=== PATIENT | female | born 1950 | race Caucasian/White ===

== ENCOUNTER 2018-11-11 11:58 | Emergency (ER) | payer OTHER, MEDICARE ==
[~2018-11-11] VITALS: Ht 177.8 cm; Wt 136.1 kg
== END 2018-11-11 13:46 | disposition home or self-care (01) ==
LOC: ER 11:58
DX: M79.662 Pain in left lower leg (principal); W19.XXXA Unspecified fall, initial encounter
CPT/HCPCS: 99283

== ENCOUNTER 2025-04-20 14:20 | Inpatient (IN) | payer OTHER ==
[~2025-04-20] VITALS: Ht 175.3 cm; Wt 142.3 kg
[2025-04-20 15:30] LABS: BASOPHILS ABSOLUTE AUTO 0.04 K/mm3 (0.00-0.23); BASOPHILS PERCENT AUTO 1 % (0-2); EOSINOPHILS ABSOLUTE AUTO 0.17 K/mm3 (0.00-0.68); EOSINOPHILS PERCENT AUTO 2 % (0-6); Hematocrit 37.2 % (33.0-51.0); Hemoglobin 12.1 g/dL (11.5-16.0); IMMATURE GRAN ABSOLUTE AUTO 0.05 K/mm3 (0.00-0.10); IMMATURE GRAN PERCENT AUTO 1 % (0-1); LYMPHOCYTES ABSOLUTE AUTO 1.21 K/mm3 (0.84-5.20); LYMPHOCYTES PERCENT AUTO 16 % (21-46); MONOCYTES ABSOLUTE AUTO 0.75 K/mm3 (0.16-1.47); MONOCYTES PERCENT AUTO 10 % (4-13); Mean Corpuscular HGB Conc 32.5 g/dL (31.5-36.5); Mean Corpuscular Volume 90 fL (80-100); NEUTROPHILS ABSOLUTE AUTO 5.60 K/mm3 (1.96-9.15); NEUTROPHILS PERCENT AUTO 72 % (41-73); NRBC ABSOLUTE 0.00 K/mm3 (0.00-0.02); NRBC Auto 0.0 /100 WBC (0.0-0.2); Platelet Count 204 K/mm3 (150-400); RDW Coefficient Variation 14.4 % (11.7-14.2); RDW Standard Deviation 47.7 fL (35.1-46.3)
[2025-04-20 16:19] LABS: Alanine Aminotransfer (ALT/SGP 37.0 U/L (12-78); Albumin, Blood 2.6 g/dL (3.4-5.0); Albumin/Globulin Ratio 0.7 (0.8-1.8); Anion Gap 7.0 mmol/L (3-11); Aspartate Aminotrans (AST/SGOT 30.0 U/L (12-37); Bilirubin, Total 0.5 mg/dL (0.1-1.0); Blood Urea Nitrogen 20.0 mg/dL (8-24); CO2, Blood 28.0 mmol/L (21-32); Calcium, Blood 8.3 mg/dL (8.5-10.1); Chloride, Blood 106.0 mmol/L (98-108); Creatinine, Blood 0.61 mg/dL (0.40-1.00); Globulin, Blood 3.9 g/dL (2.2-4.0); Glucose, Blood 104.0 mg/dL (70-99); Potassium, Blood 3.6 mmol/L (3.5-5.5); Sodium, Blood 137.0 mmol/L (136-145); Total Protein, Blood 6.5 g/dL (6.4-8.2)
[2025-04-20] MEDS ORDERED: Ondansetron HCl 2 MG / ML 2ML Vial IV PRN (19:55)
[2025-04-20] MEDS ORDERED: Piperacillin/Tazobactam Sod 3.375 GM in NS 100 ML IV ONE (20:55)
[2025-04-20] MEDS ORDERED: Ketorolac Tromethamine 15mg Vial IV PRN (20:55)
[2025-04-20] MEDS ORDERED: Lactobacil 2-S.Thermo-Bifido 1 1 Cap PO SCH (21:00)
[2025-04-20 22:03] VITALS: BP 192/100
[2025-04-20 22:11] LABS: Thyroid Stimulating Hormone 3.24 uIU/mL (0.360-4.800)
--- NOTE | 2025-04-21 00:43 | NUR ---
ADMIT NOTE FOR 04/20/252149 REPORT WAS RECEIVED FROM THE ER AND PT WAS BROUGHT DOWN ON THE GURNEY AND SHE AMBULATED TO THE BED. SHE WAS ORIENTED TO ROOM AND STAFF. ALERT ORIENTED X 4 ABLE TO VERBALIZE NEEDS ABLE TO GET UP AD JED AND AMBULATE TO THE BATHROOM. SHES HERE FOR CELLULITIS TO HER RLE THAT IS SCABBED RED AND SWOLLEN WITH WEEPING DRAINAGE. C/O PAIN TO AREA WAS MEDICATED WITH TORADOL IN THE ER BEFORE ADMIT. HER BP WAS ELEVATED ON ADMIT AT 192/100. I RETOOK IT AGAIN AT 0000 AND IT WAS 164/83. SHE HAS A CONSULT ORDERED WITH SURGEON. SHES RESTING IN BED AT THIS TIME
[2025-04-21 00:45] VITALS: BP 164/83
[2025-04-21] MEDS ORDERED: NS 250 ML IV PRN (02:10)
[2025-04-21] MEDS ORDERED: Piperacillin/Tazobactam Sod 3.375 GM in NS 100 ML IV SCH (03:00)
--- NOTE | 2025-04-21 05:02 | NUR ---
SHIFT SUMMARY PT WAS ADMITTED AT 2150 FOR CELLULITIS TO HER RLE. HER RLE IS VERY EDEMATOUS WITH SCABBED AREAS AND RED AND WARM TO TOUCH. CALLED DR. ORTEGA ANSWERING SERVICE AND INFORMED THEM OF CONSULT. HER LLE IS ALSO REDDENED WITH BLISTERED AREAS. C/O PAIN TO BLE AND CRAMPING MEDICATED WITH TORADOL WITH GOOD RELIEF OF PAIN. SHES BEEN GETTING UP AD JED IN HER ROOM BUT SHE STATED THAT HER BILAT LEGS SEEM TO BE GETTING WEAKER SO I INFORMED HER TO CALL FOR ASSIST. HER BP WAS ELEVATED AT 192/100 BUT WHEN WE RETOOK IT IT WAS 164/83. HER RLE IS ALSO WEEPING WITH YELLOW COLOR DRAINAGE. SHES RESTING IN BED AT THIS TIME WITH CALL LIGHT IN REACH
[2025-04-21 05:26] VITALS: BP 188/77
[2025-04-21 07:04] LABS: CHOL/HDL RATIO 2.0; Cholesterol 132 mg/dL (50-200); HDL Cholesterol 66 mg/dL (>39); LDL/HDL RATIO 0.8; Low Density Lipoprotein Chol 55 mg/dL (0-110); Triglycerides 54 mg/dL (30-160); Very Low Density Lipoprot Chol 10 mg/dL (6-32)
[2025-04-21 07:16] VITALS: BP 179/86
[2025-04-21] MEDS ORDERED: Enoxaparin 40 MG/0.4 ML SYR SC SCH ×2 (09:00→21:00)
[2025-04-21] MEDS ORDERED: Polyethylene Glycol 3350 17 gm PO PRN (11:05)
[2025-04-21 15:05] VITALS: BP 159/79
--- NOTE | 2025-04-21 18:01 | NUR ---
PATIENT ALERT AND ORIENTED X4 WAITING FOR MD TO EVALUATE LEG FOR SURGERY OR PLAN OF CARE. CALL LIGHT WITHIN REACH. CHUXS UNDER LEG CHANGED MULTIPLE TIMES ALONG WITH LINENS. NO CONCERNS.
[2025-04-21 20:01] VITALS: BP 143/75
[2025-04-21] MEDS ORDERED: Docusate Sodium/Senna 1 Tab PO SCH (21:00)
[2025-04-21] MEDS ORDERED: Triamcinolone Acet 0.025% Ointment 15 GM TOP SCH (21:00)
[2025-04-22] VITALS (13 sets, daily range): BP systolic 95–173; BP diastolic 53–90
[2025-04-22 05:15] LABS: Hematocrit 34.7 % (33.0-51.0); Hemoglobin 11.7 g/dL (11.5-16.0); Mean Corpuscular HGB Conc 33.7 g/dL (31.5-36.5); Mean Corpuscular Volume 88 fL (80-100); NRBC ABSOLUTE 0.00 K/mm3 (0.00-0.02); NRBC Auto 0.0 /100 WBC (0.0-0.2); Platelet Count 206 K/mm3 (150-400); RDW Coefficient Variation 14.0 % (11.7-14.2); RDW Standard Deviation 45.4 fL (35.1-46.3)
[2025-04-22 05:38] LABS: Albumin, Blood 2.4 g/dL (3.4-5.0); Anion Gap 6 mmol/L (3-11); Blood Urea Nitrogen 14 mg/dL (8-24); CO2, Blood 30 mmol/L (21-32); Calcium, Blood 8.1 mg/dL (8.5-10.1); Chloride, Blood 104 mmol/L (98-108); Creatinine, Blood 0.64 mg/dL (0.40-1.00); Glucose, Blood 104 mg/dL (70-99); Magnesium, Blood 2.1 mg/dL (1.6-2.4); Phosphorus, Blood 3.3 mg/dL (2.5-4.9); Potassium, Blood 3.7 mmol/L (3.5-5.5); Sodium, Blood 136 mmol/L (136-145)
--- NOTE | 2025-04-22 06:04 | NUR ---
SHIFT SUMMARY: Pt admitted for cellulitis and is a full code. Is alert and able to make needs known. ADLs have been mostly IND but has called for SBA when needed. Pain has been managed with PRN medications. Power glide to right upper is patent with dressing that is CDI. wound to right lower leg is NONI and draining moderate amounts of purulent fluids. Changed paper napoleon under area about every 2 hours due to drainage. She has been NPO starting at midnight due to pending I&D this AM.
--- NOTE | 2025-04-22 16:12 | NUR ---
REPORT GIVEN TO DEON RODRIGUEZ RN.
[2025-04-22] MEDS ORDERED: FentaNYL Citrate 50 MCG/ML 2 ML Injection ONE (16:54)
[2025-04-22] MEDS ORDERED: Dexamethasone Sod Phos 10 MG/ML 1ML VIAL ONE (17:06)
[2025-04-22] MEDS ORDERED: FentaNYL Citrate 50 MCG/ML 2 ML Injection IV PRN (17:20)
[2025-04-22] MEDS ORDERED: Ondansetron HCl 2 MG / ML 2ML Vial IV PRN (17:20)
[2025-04-22] MEDS ORDERED: HYDROmorphone HCl/Pf 1MG SYR IV PRN (17:20)
[2025-04-22] MEDS ORDERED: Sugammadex Sodium 200 MG/2ML SDV (100 MG/ML) ONE (17:49)
[2025-04-22] MEDS ORDERED: Ondansetron HCl 2 MG / ML 2ML Vial ONE (17:49)
--- NOTE | 2025-04-22 18:02 | NUR ---
PATIENT A/OX4, UP INDPENDENTLY IN ROOM. VSS, ON RA. NPO TODAY FOR I&D OF RLE. PATIENT STILL DOWN IN DAY SURGERY FOR PROCEDURE.
[2025-04-22] MEDS ORDERED: Ketorolac Tromethamine 30mg Vial ONE (18:16)
--- NOTE | 2025-04-22 18:38 | NUR ---
PATIENT ARRIVED BACCK FROM PACU. DRESSING TO RLE REMAINS C/D/I, GOOD CAP REFILL. PAIN MANAGED WITH DOSE OF TORADOL GIVEN PRIOR TO COMING BACK TO THE ROOM. VSS, ON RA. SITTING UP TALKING AND EATING DINNER. DENIES ANY NEEDS AT THIS TIME.
[2025-04-23 02:02] VITALS: BP 137/71
--- NOTE | 2025-04-23 03:28 | NUR ---
SHIFT SUMMARY PT ALERT ORIENTED X 4 ABLE TO VERBALIZE NEEDS GETS UP AND AMBULATES TO THE BATHROOM WITH SBA AND WALKER. C/O RT LEG PAIN WHERE THE CELLULITIS IS MEDICATED WITH TORADOL AND TYLENOL WITH GOOD PAIN RELIEF. REMAINS ON ZOSYN ORDERED FOR CELLULITIS. PTS HOME MEDS NEED TO BE STARTED. I CALLED THE FREIGHT COORDINATOR AND HE STATED TO GET THE ORDERS FROM THE AM DR. FS DONE AC AND HS WAS 124. DRESSING IS INTACT TO I&D SURGICAL SITE WITH DRAINAGE TO THE AREA. RESTING IN BED AT THIS TIME WITH CALL LIGHT IN REACH
[2025-04-23 06:00] VITALS: BP 126/81
--- NOTE | 2025-04-23 06:02 | NUR ---
DRESSING WAS CHANGED TO HER RLE PT TOLERATED WELL
[2025-04-23 07:49] VITALS: BP 140/63
--- NOTE | 2025-04-23 17:43 | NUR ---
SHIFT SUMMARY PATIENT A&OX4, COOPERATIVE WITH CARE, TALKATIVE. MEDICATED WITH TORADOL Q6 FOR PAIN R/T HER BLE WOUNDS. NO ACUTE EVENTS THIS SHIFT. LBM YESTERDAY. PATIENT IS CURRENTLY EATING DINNER. BED IN THE LOWEST POSITION. CALL LIGHT WITHIN REACH.
[2025-04-23 19:15] VITALS: BP 145/59
[2025-04-23] MEDS ORDERED: MELATONIN5 M1 PO ×2 (20:03)
[2025-04-23] MEDS ORDERED: CHLO4 PO ×2 (20:05)
[2025-04-23] MEDS ORDERED: IBUP200 PO ×2 (20:05)
[2025-04-23] MEDS ORDERED: MAG GLYCINATE100 MG PO ×2 (20:39)
[2025-04-24 02:02] VITALS: BP 152/74
--- NOTE | 2025-04-24 05:16 | NUR ---
NO ACUTE CHANGES, SLEPT WELL THROUGH THE NIGHT, MEDICATED WITH TORADOL, DRESSING CHANGE DONE, PATIENT TOELRATED WELL BEING PER MEDICATED WITH TORADOL FOR THE DRESSING CHANGES, VERY TALKATIVE. STAND BY ASSIST TO BATHROOM WITH FWW, STEADY GAIT, CALL LIGHT WITH IN REACH, WILL RELAY TO AM RN
[2025-04-24 07:51] VITALS: BP 140/70
[2025-04-24] MEDS ORDERED: CeFAZolin Sodium 2,000 MG in NS 100 ML IV SCH (12:00)
[2025-04-24 16:11] VITALS: BP 126/32
--- NOTE | 2025-04-24 17:29 | NUR ---
SUMMARY- PT A/O X4, INDEPENDANT IN THE ROOM. TOLERATING FOOD AND FLUID. VOIDING AND LAST BM 04/21- TOOK RLE DRESSING DOWN THIS AM FOR DR HENSLEY TO SEE. PICTURES TAKEN FOR DR ORTEGA WHO CAME TO SEE PT AROUND 1500. DRESSING CHANGED AT 1330 AFTER NS CLEANSE.CALCIUM ALGINATE, ABD AND KERLEX. WOUND IS HEALING WITH EPITHELIAL BUDDING, LESS SWELLING AND DRAINAGE. PT AND DR HENSLEY AND JORDAN AGREE WOUND IS HEALING PROGRESSIVELY EVERY DAY. PAIN CONTROLLED WITH TORODOL. WILL REPORT TO NOC RN
[2025-04-24 19:41] VITALS: BP 129/55
[2025-04-25 03:01] VITALS: BP 136/75
--- NOTE | 2025-04-25 05:30 | NUR ---
SHIFT SUMMARY PATIENT A/OX4- IND IN THE ROOM AND PLEASANT AND COOPERATIVE WITH CARE. VITAL SIGNS REMAINED STABLE THROUGHOUT THE NIGHT. PAIN MANAGED WITH TYLENOL AND TORADOL PER EMAR. PT REPORTS THAT SHE SLEPT WELL. ABX CONTINUED PER EMAR. VOIDING WELL. NO ACUTE CHANGES THROUGHOUT SHIFT. WILL CONTINUE TO MONITOR AND REPORT TO ONCOMING RN.
[2025-04-25 07:17] VITALS: BP 131/78
[2025-04-25] MEDS ORDERED: HYDCHL25 PO ×2 (11:53)
[2025-04-25] MEDS ORDERED: LOSA50 PO ×2 (11:54)
[2025-04-25] MEDS ORDERED: MIRALAX17 GM PO ×2 (11:54)
[2025-04-25] MEDS ORDERED: Triamcinolone A15 GM TOP ×2 (11:55)
[2025-04-25] MEDS ORDERED: CEPH500 PO ×2 (11:56)
[2025-04-25] MEDS ORDERED: VISBIOME 112.51 EACH PO ×2 (11:56)
--- NOTE | 2025-04-25 14:00 | NUR ---
DISCHARGE POWERGLIDE IV PULLED, INTACT. PATIENT VERBALIZED UNDERSTANDING OF DISCHARGE INSTRUCTION AND MED LIST. COMPLETED WOUND CARE. PATIENT TO DRESS SELF. NO TELE.
== END 2025-04-25 14:05 | disposition home or self-care (01) | DRG 603 ==
LOC: ER 14:20 → MEDS 19:53
PROVIDERS: Internal Medicine; Nurse Practitioner Acute Care; Physician Assistant; ADMIT Internal Medicine
DX: L03.115 Cellulitis of right lower limb (principal); Z68.41 Body mass index [BMI] 40.0-44.9, adult; I10 Essential (primary) hypertension; E03.9 Hypothyroidism, unspecified; R73.03 Prediabetes; I16.0 Hypertensive urgency; I87.2 Venous insufficiency (chronic) (peripheral); E66.01 Morbid (severe) obesity due to excess calories; Z66 Do not resuscitate; I89.0 Lymphedema, not elsewhere classified; Z90.49 Acquired absence of other specified parts of digestive tract; Z90.89 Acquired absence of other organs
CPT/HCPCS: 36415; 73701; 80053; 80061; 80069; 83036; 83605; 83735; 84443; 85025; 85027; 93005; 93010; 99285-25; A9270; C1751; J0690; J1100; J1650; J1885; J2405; J2543; J2704; J3010; J7050; J7120; Q9967

== ENCOUNTER 2025-04-27 01:39 | Day surgery (SDC) | payer OTHER ==
[~2025-04-27 01:39] MED LIST: CEPH500 PO; CHLO4 PO; HYDCHL25 PO; IBUP200 PO; LOSA50 PO; MAG GLYCINATE100 MG PO; MELATONIN5 M1 PO; MIRALAX17 GM PO; Triamcinolone A15 GM TOP; VISBIOME 112.51 EACH PO
[2025-04-27] MEDS ORDERED: Lidocaine HCl 4% Cream 5 GM ONE (12:58)
== END 2025-04-27 23:00 | disposition home or self-care (01) ==
LOC: WOUND 01:39
DX: L97.812 Non-pressure chronic ulcer of other part of right lower leg with fat layer exposed (principal); I87.2 Venous insufficiency (chronic) (peripheral); I73.9 Peripheral vascular disease, unspecified; L03.115 Cellulitis of right lower limb; I10 Essential (primary) hypertension; G47.33 Obstructive sleep apnea (adult) (pediatric); E03.9 Hypothyroidism, unspecified; E66.9 Obesity, unspecified; Z68.41 Body mass index [BMI] 40.0-44.9, adult; Z91.09 Other allergy status, other than to drugs and biological substances
CPT/HCPCS: A9270

== ENCOUNTER 2025-05-04 02:26 | Day surgery (SDC) | payer OTHER | END 2025-05-04 23:00 | disposition home or self-care (01) | LOC: WOUND 02:26 | DX: L97.812 Non-pressure chronic ulcer of other part of right lower leg with fat layer exposed (principal); L03.115 Cellulitis of right lower limb; I87.2 Venous insufficiency (chronic) (peripheral); I73.9 Peripheral vascular disease, unspecified; I10 Essential (primary) hypertension | CPT/HCPCS: G0463 ==

== ENCOUNTER 2025-05-18 01:35 | Day surgery (SDC) | payer OTHER | END 2025-05-18 23:00 | disposition home or self-care (01) | LOC: WOUND 01:35 | DX: L03.115 Cellulitis of right lower limb (principal); I87.2 Venous insufficiency (chronic) (peripheral); I73.9 Peripheral vascular disease, unspecified; I10 Essential (primary) hypertension; I89.0 Lymphedema, not elsewhere classified | CPT/HCPCS: G0463 ==